=== PATIENT | male | born 1965 | race Caucasian/White ===

== ENCOUNTER 2021-01-19 16:02 | Emergency (ER) | payer OTHER, SELFPAY ==
--- NOTE | ~2021-01-19 | XR_ITS ---
EXAMINATION: XR abdomen/kub 1V DATE: 01/19/2021 17:05 INDICATION: Left flank pain and hematuria TECHNIQUE: A supine view of the abdomen on 2 radiographs was obtained. COMPARISON: None. FINDINGS: A few tiny phleboliths in the deep pelvis which appear both more lateral and inferior than the expect ed course of ureters. No evident urolithiasis. Normal bowel gas pattern. Lung bases are clear. Heart size is normal. 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 IMPRESSION: 1. No evident urolithiasis. Reviewed, dictated and finalized at location A. IMPRESSION: 1. No evident urolithiasis.
[2021-01-19 16:20] VITALS: PULSE 93; RESP 18; TEMP 37; O2SAT 100
[2021-01-19 16:50] VITALS: BP 193/103
--- NOTE | 2021-01-19 16:55 | ED.MALEGU ---
HPI - Male Genitourinary General Chief complaint: Urogenital-Male Stated complaint: blood in urine Time Seen by Provider: 01/19/21 16:48 Source: patient and RN notes reviewed Mode of arrival: ambulatory Limitations: no limitations History of Present Illness HPI Narrative: Patient presents today complaining of hematuria since this afternoon that is accompanied by dysuria.. Denies abdominal pain, nausea, vomiting, fever, any current flank pain. Yesterday while golfing, he experienced some left side pain that lasted for a few minutes then quickly resolved. This pain has not returned. History of kidney stones. MD Complaint: dysuria (Hematuria) Related Data Allergies Allergy/AdvReac Type Severity Reaction Status Date / Time No Known Drug Allergies Allergy Unknown none Verified 01/10/18 08:27 Review of Systems Review of Systems: Narrative: CONSTITUTIONAL: Denies body aches, fever, chills, or sweats. EYES: Denies visual changes, redness, or discharge. ENT: Denies rhinorrhea, congestion, sore throat, or otalgia. CARDIOVASCULAR: Denies chest pain, palpitations, or edema. RESPIRATORY: Denies cough or dyspnea. GASTROINTESTINAL: Denies abdominal pain, nausea, vomiting, or diarrhea. GENITOURINARY: + Dysuria, hematuria, history of flank pain SKIN: Denies rash, itching, or wounds. MUSCULOSKELETAL: Denies back pain, joint pain, or myalgia. NEUROLOGIC: Denies headache, numbness, tingling, or weakness. PSYCH: Denies depression or anxiety. [facility] Past Medical History Medical History (Updated 01/19/21 @ 17:40 by Kayla Mccormick, [facility], ) Gout History of kidney stones Social History Social History Gender identity (if verbalized by the patient): Male Comments At time of signature, I have reviewed and agree with nursing past medical, surgical, social and family history unless otherwise noted. Please see nursing chart for further information. There is no relevant family history pertinent to the presenting complaint Exam Narrative: Exam Narrative: GENERAL: Well-appearing, well-nourished, and in no acute distress. HEAD: Normocephalic, atraumatic. EYES: EOMI. No redness or drainage. Conjunctivae normal. ENT: Mucous membranes pink and moist. NECK: Normal AROM. CHEST: No respiratory distress. Clear to auscultation. HEART: Regular rate and rhythm. No murmur appreciated. Normal peripheral pulses. ABDOMEN: Soft, nontender, nondistended, normal active bowel sounds.-CVAT MUSCULOSKELETAL: No bony tenderness. EXTREMITIES: Normal range of motion. No edema. SKIN: Warm, dry, no rash. Capillary refill normal. Normal skin turgor. NEURO: No focal deficits. Alert and oriented x3. Gait steady. PSYCH: Normal affect. No signs of depression or anxiety. Course Vital Signs Vital signs: Vital Signs Temperature 98.6 F 01/19/21 16:20 Pulse Rate 93 01/19/21 16:20 Respiratory Rate 18 01/19/21 16:20 Pulse Oximetry 100 01/19/21 16:20 Temperature 98.6 F 01/19/21 16:20 Pulse Rate 81 01/19/21 17:40 Respiratory Rate 18 01/19/21 16:20 Blood Pressure 166/104 H 01/19/21 17:40 Pulse Oximetry 100 01/19/21 17:30 Reviewed. Pt has been instructed to follow up with his PCP regarding his elevated blood pressure today. MDM - Male Genitourinary Differential Diagnosis Differential diagnosis: Likely urinary tract infection, urethritis and other (Hematuria, kidney stone) Lab Data Attestation: I reviewed the patient's lab results. Labs: Urine Glucose Negative Reference Range: Negative Urine Bilirubin Negative Reference Range: Negative Urine Ketone Trace Reference Range: Negative Urine Specific [place] 1.010 Reference Range:1.001-1.035 Urine B
[2021-01-19 17:30] VITALS: BP 173/117; PULSE 92; O2SAT 100
[2021-01-19 17:40] VITALS: BP 166/104; PULSE 81
== END 2021-01-19 17:45 | disposition home or self-care (01) ==
PROVIDERS: Emergency Provider Nurse Practitioner
DX: R31.9 Hematuria, unspecified (principal); M10.9 Gout, unspecified
CPT/HCPCS: 74018; 81003; 87086; 87088; 99203; G0463

== ENCOUNTER 2021-02-13 11:30 | Emergency (ER) | payer OTHER, SELFPAY ==
[2021-02-13 11:43] VITALS: BP 171/105; PULSE 60; RESP 16; TEMP 36.5; O2SAT 100
--- NOTE | 2021-02-13 12:22 | ED.LOWEXIN ---
HPI - Extremity Injury (Lower) General Chief Complaint: Extremity Problem,Nontraumatic Stated Complaint: rt foot pain/pos gout Time Seen by Provider: 02/13/21 12:18 Source: patient and RN notes reviewed Mode of arrival: ambulatory Limitations: no limitations History of Present Illness HPI Narrative: 55-year-old male presents to the [facility] with complaints of right foot,Right great toe and ankle pain with swelling. Has a history of gout in the same area. States when he takes indomethacin it makes it better Denies any injury. Swelling noted. Tenderness to palpation. Related Data Allergies Allergy/AdvReac Type Severity Reaction Status Date / Time No Known Drug Allergies Allergy Unknown none Verified 02/13/21 11:58 Review of Systems Review of Systems: All systems reviewed & are unremarkable except as noted in HPI and below Constitutional: Constitutional: Reports no additional constitutional complaints, Denies chills and Denies fever(s) Eyes: Eyes: Reports no additional eye complaints and Denies change in vision ENT: Reports system reviewed and no additional complaints, except as documented and Denies sore throat Cardiovascular: Cardiovascular: Reports no additional cardiovascular complaints and Denies chest pain Respiratory: Respiratory: Reports no additional respiratory complaints, Denies chest congestion, Denies cough, Denies dyspnea and Denies wheezing Gastrointestinal: Gastrointestinal: Reports no additional gastrointestinal complaints and Denies abdominal pain Musculoskeletal: Musculoskeletal: Reports as per HPI and Reports joint swelling (Right medial ankle and base of great toe) Integumentary/Breasts: Skin/Breast: Reports as per HPI and Denies rash Comments: Area increased pink without increased warmth to medial right ankle Neurologic: Reports system reviewed and no additional complaints, except as documented, Denies dizziness and Denies syncope Psychiatric: Psychiatric: Reports no additional psychiatric complaints Allergic/Immunologic: Allergic/Immunologic: Reports no additional allergic/immunologic complaints PMFSH Past Medical History Medical History (Updated 02/16/21 @ 14:37 by Mary Zavala) Gout History of kidney stones Social History Social History Gender identity (if verbalized by the patient): Male Comments At the time of my signature, I reviewed and agree with the nursing past medical, surgical, social, and family history. There is no relevant family history pertinent to the patient complaint. Exam Const: General: healthy appearing, no acute distress and alert Nutritional Appearance: well nourished Orientation/consciousness: patient oriented x3 Limitations: no limitations HENMT: Head: normal to inspection Eyes: Conjunctivae: conjunctivae normal Pupils: Equal, round and reactive pupils present Neck: Neck: normal visual inspection, no lymphadenopathy and no meningeal signs Chest: Chest palpation & inspection: normal inspection of the chest Resp: Effort & Inspection: normal respiratory effort and no use of accessory muscles Auscultation: clear to auscultation bilaterally, no crackles, no rales, no rhonchi and no wheezes Cardio: Rate: regular rate Rhythm: regular rhythm Back/Spine/Pelvis: Back: no CVA tenderness Skin: Wounds: no wounds Other: [place] medial ankle and base of great toe. No increased warmth. Mild swelling noted Neuro: General: patient oriented x3, moves all extremities, no meningeal signs and no focal motor deficits Speech: normal speech Gait exam (Neuro): Normal gait present Extrem: General: normal to inspection Ankle/foot/toe images: 1. Mild swelling, tenderness pink in color 2. Mild swelling, tenderness, pink in color Psych: Appearance: grossly normal and well kempt Mental Status: mental status grossly normal Affect: normal affect Attitude: cooperative Thought content: Yes Normal thought content present Course Course Emergency Course: Disc
[2021-02-13 12:27] VITALS: BP 166/104
== END 2021-02-13 12:30 | disposition home or self-care (01) ==
PROVIDERS: Emergency Provider Nurse Practitioner; PCP Family Medicine
DX: M10.9 Gout, unspecified (principal)
CPT/HCPCS: 99213; G0463

== ENCOUNTER 2022-06-14 08:12 | Emergency (ER) | payer OTHER, SELFPAY ==
[2022-06-14 08:24] VITALS: BP 160/121; PULSE 75; RESP 16; TEMP 36.6; O2SAT 100
--- NOTE | 2022-06-14 08:55 | ED.EXTPRO ---
HPI - Extremity Problem General Chief complaint: Extremity Problem,Nontraumatic Stated complaint: rt foot injury Time Seen by Provider: 06/14/22 08:50 Source: patient and RN notes reviewed Mode of arrival: ambulatory Limitations: no limitations History of Present Illness HPI Narrative: 56-year-old male presents with concern for possible gout to his right foot. He reports history of gout flares once the year. He reports pain is that the distal pedal foot. She reports redness and swelling. He denies any injury. He denies exacerbating or relieving factors. She denies taking any [id number] medications for his symptoms. He denies fever, body aches, chills, sweats, open skin. MD Complaint: extremity pain Related Data Allergies Allergy/AdvReac Type Severity Reaction Status Date / Time No Known Drug Allergies Allergy Unknown none Verified 02/13/21 11:58 Review of Systems Review of Systems: CONSTITUTIONAL: Denies malaise, chills, sweats, or fever. CARDIOVASCULAR: Denies chest pain, palpitations, or edema. RESPIRATORY: Denies cough or dyspnea. SKIN: Denies rash or itching, bruising. MUSCULOSKELETAL: Reports right foot pain, redness, swelling NEUROLOGIC: Denies numbness, weakness All systems reviewed & are unremarkable except as noted in HPI and below PMFSH Past Medical History Medical History (Updated 06/14/22 @ 08:59 by Mary Meadows NP) Gout History of kidney stones Social History Social History Gender identity (if verbalized by the patient): Male Comments At time of signature, agree with nursing past medical, surgical, social and family history. There is no relevant family history pertinent to the presenting complaint Exam Narrative: GENERAL: Well-appearing, well-nourished, and in no acute distress. HEAD: Normocephalic, atraumatic. EYES: PERRLA, conjunctivae clear NECK: Supple. CHEST: Speaks in full sentences. No respiratory distress. HEART: Regular rate and rhythm. Normal and equal peripheral pulses. EXTREMITIES: Right foot and digits have normal strength and sensation, normal range of motion. Mild edema and erythema. 5/5 strength with digit flexion and extension. Normal sensation with sensitivity to light touch and pain. No point tenderness. No open wounds, no skin tenting, no devitalized tissue or atrophy, no trophic changes, no obvious deformity, alignment normal, nearby joints and structures intact. Distal pulses palpable and equal bilaterally, skin warm, dry, pink. Capillary refill less than 3 seconds. SKIN: Warm, dry, no rash. No fluctuation or induration noted NEURO: Alert and oriented x3. PSYCH: Normal mood and affect Course Course Emergency Course: Patient is aware of diagnosis, understands and agrees to treatment plan. Anticipatory guidance given. Patient agrees to follow-up as directed and is aware of reasons to seek care at the emergency department. Portions of this record may have been created with voice recognition software Level of Care: Express Care Visit Vital Signs Vital signs: Vital Signs Temperature 98 F 06/14/22 08:24 Pulse Rate 75 06/14/22 08:24 Respiratory Rate 16 06/14/22 08:24 Blood Pressure 160/121 H 06/14/22 08:24 Pulse Oximetry 100 06/14/22 08:24 Temperature 98 F 06/14/22 08:24 Pulse Rate 75 06/14/22 08:24 Respiratory Rate 16 06/14/22 08:24 Blood Pressure 160/121 H 06/14/22 08:24 Pulse Oximetry 100 06/14/22 08:24 Reviewed. MDM - Extremity (Nontraumatic) MDM Narrative Medical decision making narrative: Exam findings show no acute concerns or changes; patient is non-toxic appearing and is in no distress. Patient is appropriate for outpatient treatment and follow-up. Differential Diagnosis Differential diagnosis: Likely gout, cellulitis, lower extremity edema and deep vein thrombosis of lower extremity Critical Care Time Critical Care Time Critical Care Time: No Discharge Plan Discharge Clinical Impression: Gout at
[2022-06-14 09:07] VITALS: BP 150/96
== END 2022-06-14 09:07 | disposition home or self-care (01) ==
PROVIDERS: Emergency Provider Nurse Practitioner; PCP Family Medicine
DX: M10.9 Gout, unspecified (principal)
CPT/HCPCS: 99213; G0463